=== PATIENT | female | born 1980 | race African-American/Black ===

== ENCOUNTER 2019-11-30 11:10 | Inpatient (IN) | payer OTHER ==
[2019-11-30 11:55] VITALS: BMI 31.6
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
[2019-11-30] MEDS ORDERED: MAG HYDROX/AL HYDROX/SIMETH 30 ML UNIT-DOSE CUP PO PRN (13:49)
[2019-11-30] MEDS ORDERED: BISMUTH SUBSALICYLATE 524 MG/30 ML UD PO PRN (13:49)
[2019-11-30] MEDS ORDERED: cloNIDine HCL 0.1 MG TABLET PO PRN (13:49)
[2019-11-30] MEDS ORDERED: ACETAMINOPHEN 325 MG TABLET (FP) PO PRN ×2 (13:49)
[2019-11-30] MEDS ORDERED: IBUPROFEN 400 MG TABLET (FP) PO PRN (13:49)
[2019-11-30] MEDS ORDERED: MAGNESIUM CITRATE 300 ML BOTTLE PO PRN (13:49)
[2019-11-30] MEDS ORDERED: MAGNESIUM HYDROX 2400MG/30ML ORAL SUSPENSION 30 ML CUP PO PRN (13:49)
[2019-11-30] MEDS ORDERED: MENTHOL/PHENOL 1 EACH UD MM PRN (13:49)
[2019-11-30] MEDS ORDERED: METHADONE HCL 10 MG TABLET (FOR DETOX USE ONLY) PO ONE (14:00)
[2019-11-30] MEDS: NICOTINE 14 MG/24 HOURS TOPICAL PATCH TD SCH (14:37)
[2019-11-30] MEDS: METHOCARBAMOL 500 MG TABLET PO PRN ×2 (15:10→22:22)
[2019-11-30 17:40] LABS: HEMATOCRIT 38.7 % (32.4-45.2); HEMOGLOBIN 12.4 GM/dL (10.7-15.3); MCH 28.2 pg (25.7-33.7); MCHC 32.1 g/dl (32.0-36.0); MEAN CELL VOLUME 87.9 fl (80-96); MEAN PLT VOLUME 9.6 fl (7.5-11.1); PLATELET COUNT 231 K/MM3 (134-434); RBC 4.41 M/mm3 (3.60-5.2); RDW 14.4 % (11.6-15.6); WHITE BLOOD COUNT 8.1 K/mm3 (4.0-10.0)
[2019-11-30 17:51] LABS: BILIRUBIN,TOTAL 0.3 mg/dL (0.2-1); BLOOD UREA NITROGEN 14.1 mg/dL (7-18); CALCIUM 9.1 mg/dL (8.5-10.1); POTASSIUM 3.8 mmol/L (3.5-5.1); TOT PROT 7.3 g/dl (6.4-8.2)
[2019-11-30] MEDS: hydrOXYzine PAMOATE 25 MG CAPSULE (FP) PO PRN (18:11)
[2019-11-30] MEDS: MELATONIN 5 MG TABLETS PO PRN (22:22)
[2019-11-30] MEDS: THIAMINE HCL 100 MG TABLET (FP) PO SCH (22:22)
[2019-12-01] MEDS ORDERED: METHADONE HCL 10 MG TABLET (FOR DETOX USE ONLY) ONE (09:49)
[2019-12-01] MEDS ORDERED: METHADONE HCL 5 MG TABLET (FOR DETOX USE ONLY) ONE (09:50)
[2019-12-01] MEDS ORDERED: METHADONE (DETOX) 20 MG, METHADONE (DETOX) 5 MG PO ONE (10:00)
[2019-12-01] MEDS: PRENATAL VITAMINS W/ FOLIC ACID TABLET (FP) PO SCH (10:05)
[2019-12-01] MEDS: hydrOXYzine PAMOATE 25 MG CAPSULE (FP) PO PRN ×2 (10:06→17:03)
[2019-12-01] MEDS: METHOCARBAMOL 500 MG TABLET PO PRN ×2 (10:06→17:03)
[2019-12-01] MEDS: NICOTINE 14 MG/24 HOURS TOPICAL PATCH TD SCH (10:08)
--- NOTE | 2019-12-01 10:37 | CONSULT ---
[facility] Psychiatric Consult - Data Date of interview: 12/01/19 Admission source: [facility] Identifying data: Revisit to [facility] and admission to [address] [place] [address] for this 39 y/o AA female self-referred for detoxification treatment. CYNTHIA issues : alcohol, nicotine, heroin. Patient is single, a mother of two (children are in legal custody of maternal grand mother), homeless, unemployed and deprived of financial assistance. Substance Abuse History: Discussed with the patient. Details in current [facility] report as follows : Smoking history: Current every day smoker. Have you smoked in the past 12 months: Yes. Aproximately how many cigarettes per day: 6. If you are a former smoker, when did you quit?: 2000. Hx Chewing Tobacco Use: No. Initiated information on smoking cessation: Yes. 'Breaking Loose' booklet given: 11/30/19. - Substances abused. Crack. Substance route: Smoking. Frequency: Daily. Amount used: $100. Age of first use: 36. Date of last use: 11/29/19. Heroin. Substance route: Inhalation. Frequency: Daily. Amount used: 6 BAGS. Age of first use: 34. Date of last use: 11/29/19. Alprazolam (Xanax). Substance route: Oral. Frequency: Daily. Amount used: 16 MG. Age of first use: 27. Date of last use: 11/29/19. Non-Rx Methadone. Substance route: Oral. Frequency: Daily. Amount used: 50MG. Age of first use : 34. Date of last use: 11/29/19. Alcohol. Substance route: Oral. Frequency: Daily. Amount used: 32 OZ BEER. Age of first use: 32. Date of last use: 11/29/19 Medical History: Medical profile is remarkable for chronic lumbar pain ( herniated discs), polyneuropathy and antecedent of two sections. Psychiatric History: Patient denies history of psychiatric hospitalizations. She saw a psychiatrist for the first time, age 31, at the [facility] ([facility]) to address issues of depression and anxiety. Patient is known to [facility]. At that facility, she was medicated with buspar + celexa + gabapentin. Ms Smith endorses : MDD, PTSD and Bipolar Disorder. She reports her current regimen as wellbutrin XL 150 mg/ day + gabapentin 800 mg po tid. She denies affiliation with a psychiatric OPD care provider (got her medications during a recent admission to the detox unit at [facility]). Questionable and unreliable historian. Patient denies history of suicide attempts. Physical/Sexual Abuse/Trauma History: Not discused. Patient declines. Additional Comment: Urine drug screen results: THC-Marijuana, ELIAN-Cocaine, FEN- Fentanyl, MOP-Opiates, MTD-Methadone, BZO-Benzodiazepines, MDMA-Ecstasy. Noted. Mental Status Exam - Mental Status Exam Alert and Oriented to: Time, Place, Person Cognitive Function: Good Patient Appearance: Unkempt, Disheveled (somnolent during the psychiatric interview) Mood: Nervous, Withdrawn Affect: Mood Congruent, Constricted Patient Behavior: Sedated (mildly sedated during interview), Fatigued Speech Pattern: Delayed, Slurred Voice Loudness: Normal Thought Process: Goal Oriented Thought Disorder: Not Present Hallucinations: Denies Suicidal Ideation: Denies Homicidal Ideation: Denies Insight/Judgement: Poor Sleep: Well Appetite: Good Gait/Station: Other (slow) Psychiatric Findings - Problem List ([place] 1, 2,3) (1) Alcohol dependence Current Visit: Yes Status: Chronic (2) Opioid dependence Current Visit: Yes Status: Chronic (3) Cocaine use disorder Current Visit: Yes Status: Chronic (4) Benzodiazepine dependence Current Visit: Yes Status: Chronic (5) Nicotine dependence Current Visit: Yes Status: Chronic (6) Drug-induced mood disorder Current Visit: Yes Status: Chronic (7) History of depression Current Visit: Yes Status: Chronic - Initial Treatment Plan Initial Treatment Plan: Psychoeducation. Sleep hygiene. Detoxification in process. Resumed : wellbutrin XL 150 mg po daily. Patient is made aware of potential for seizures. Ms Smith is in agreement with this plan of care. Gave consent (verbal) to MD. Posada.
[2019-12-01] MEDS ORDERED: GABAPENTIN 300 MG CAPSULE PO SCH (10:48)
--- NOTE | 2019-12-01 12:42 | PN ---
[facility] CIWA - CIWA Score Nausea/Vomitin-Mild Nausea/No Vomiting Muscle Tremors: 3 Anxiety: 3 Agitation: 2 Paroxysmal Sweats: 2 Orientation: 0-Oriented Tacttile Disturbances: 0-None Auditory Disturbances: 0-None Visual Disturbances: 0-None Headache: 1-Very Mild CIWA-Ar Total Score: 12 S COWS - Scale Resting Pulse: 0= [place] 80 or Below Sweatin= Chills/Flushing Restless Observation: 0= Sits Still Pupil Size: 1= Pupils >than Normal Bone or Joint Aches: 1= Mild Discomfort Runny Nose/ Eye Tearin= None GI Upset > 30mins: 1= Stomach Cramp Tremor Observation of Outstretched Hands: 2= Slight Tremor Visible Yawning Observation: 0= None Anxiety or Irritability: 2=Irritable/Anxious Goose Flesh Skin: 0=Smooth Skin COWS Score: 8 [facility] Progress Note (SOAP) Subjective: 39 years old female admitted on 11/30/19 for alcohol benzo opiate withdrawal sx management treating with clonidine prn and methadone detox regimen due to low bp discontinue clonidine begin klonopine 0.5 mg po prn reports taking neurontin 800 mg po tid every day last dose was the day of [facility] admission medical underwriter called preferred pharmacy [phone] 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 neurontine 800mg po tid x 7 days on 07/04/19 "no curing pickling packer" reports has neurontin in property encourage to curing pickling packer bottle from property for continuity of care requests to call [phone] for neurontine 800 mg po tid pharmacist states that patient has neurontine 300mg po tid x 5 days from to 11/27/19 patient curing pickling packer on 11/22/19 due to none continuity of neurontine po daily begin neurontine 100 mg po bid prn patient demands prescription of neurontine 800mg po tid health teaching on risks of respiratory distress of neutrontine Objective: 12/01/19 12:46 Vital Signs Temperature 98.7 F 12/01/19 09:34 Pulse Rate 56 L 12/01/19 09:34 Respiratory Rate 18 12/01/19 09:34 Blood Pressure 106/72 12/01/19 09:34 O2 Sat by Pulse Oximetry (%) Laboratory Last Values WBC 8.1 K/mm3 (4.0-10.0) 11/30/19 14:00 RBC 4.41 M/mm3 (3.60-5.2) 11/30/19 14:00 Hgb 12.4 GM/dL (10.7-15.3) 11/30/19 14:00 Hct 38.7 % (32.4-45.2) 11/30/19 14:00 MCV 87.9 fl (80-96) 11/30/19 14:00 MCH 28.2 pg (25.7-33.7) 11/30/19 14:00 MCHC 32.1 g/dl (32.0-36.0) 11/30/19 14:00 RDW 14.4 % (11.6-15.6) 11/30/19 14:00 Plt Count 231 K/MM3 (134-434) D 11/30/19 14:00 MPV 9.6 fl (7.5-11.1) 11/30/19 14:00 Sodium 143 mmol/L (136-145) 11/30/19 14:00 Potassium 3.8 mmol/L (3.5-5.1) 11/30/19 14:00 Chloride 109 mmol/L (98-107) H 11/30/19 14:00 Carbon Dioxide 29 mmol/L (21-32) 11/30/19 14:00 Anion Gap 5 MMOL/L (8-16) L 11/30/19 14:00 BUN 14.1 mg/dL (7-18) 11/30/19 14:00 Creatinine 1.0 mg/dL (0.55-1.3) 11/30/19 14:00 Est GFR (CKD-EPI)AfAm 82.19 11/30/19 14:00 Est GFR (CKD-EPI)NonAf 70.91 11/30/19 14:00 Random Glucose 98 mg/dL (74-106) 11/30/19 14:00 Calcium 9.1 mg/dL (8.5-10.1) 11/30/19 14:00 Total Bilirubin 0.3 mg/dL (0.2-1) 11/30/19 14:00 AST 15 U/L (15-37) 11/30/19 14:00 ALT 23 U/L (13-61) 11/30/19 14:00 Alkaline Phosphatase 67 U/L (45-117) 11/30/19 14:00 Total Protein 7.3 g/dl (6.4-8.2) 11/30/19 14:00 Albumin 4.0 g/dl (3.4-5.0) 11/30/19 14:00 POC Urine HCG, Qual Negative 11/30/19 11:56 RPR Titer Nonreactive (NONREACTIVE) 11/30/19 14:00 HIV 1&2 Antibody Screen Negative 11/30/19 14:00 HIV P24 Antigen Negative 11/30/19 14:00 lab noted Assessment: 12/01/19 12:46 alcohol benzo opiate withdrawal Plan: clonopine prn and methadone regiments
[2019-12-01] MEDS: clonazePAM 0.5 MG TABLET PO PRN ×2 (13:54→20:27)
[2019-12-01] MEDS: GABAPENTIN 100 MG CAPSULE PO PRN ×2 (13:54→20:27)
[2019-12-01] MEDS: MELATONIN 5 MG TABLETS PO PRN (22:02)
[2019-12-01] MEDS: THIAMINE HCL 100 MG TABLET (FP) PO SCH (22:02)
[2019-12-02] MEDS: clonazePAM 0.5 MG TABLET PO PRN ×3 (06:14→19:49)
[2019-12-02] MEDS: METHOCARBAMOL 500 MG TABLET PO PRN ×3 (06:14→19:49)
[2019-12-02] MEDS: GABAPENTIN 100 MG CAPSULE PO PRN ×3 (06:14→19:49)
--- NOTE | 2019-12-02 09:40 | PN ---
[facility] CIWA - CIWA Score Nausea/Vomitin-No Nausea/No Vomiting Muscle Tremors: 2 Anxiety: 3 Agitation: 0-Normal Activity Paroxysmal Sweats: 2 Orientation: 0-Oriented Tacttile Disturbances: 3-Moderate Itch/Numb/Burn Auditory Disturbances: 0-None Visual Disturbances: 0-None Headache: 1-Very Mild CIWA-Ar Total Score: 11 [facility] COWS - Scale Resting Pulse: 0= [place] 80 or Below Sweatin= Chills/Flushing Restless Observation: 1= Difficult to Sit Still Pupil Size: 0= Normal to Room Light Bone or Joint Aches: 1= Mild Discomfort Runny Nose/ Eye Tearin= Nasal Congestion GI Upset > 30mins: 1= Stomach Cramp Tremor Observation of Outstretched Hands: 1= Tremor [place], Not Seen Yawning Observation: 1= 1-2x During Session Anxiety or Irritability: 2=Irritable/Anxious Goose Flesh Skin: 0=Smooth Skin COWS Score: 9 S Progress Note (SOAP) Subjective: c/o of chronic back pain (as per pt hx of herniated discs), pruritus, anxiety, interrupted sleep. Patient reports taking 800 mg tid for anxiety and pain, as per previous provider note last rx for 800 mg was June 2019, last rx for neurontin 300 mg tid was nov 2019. Objective: 12/02/19 09:40 Vital Signs Temperature 97.9 F 12/02/19 09:23 Pulse Rate 80 12/02/19 09:23 Respiratory Rate 18 12/02/19 09:23 Blood Pressure 98/61 12/02/19 09:23 O2 Sat by Pulse Oximetry (%) Laboratory Last Values WBC 8.1 K/mm3 (4.0-10.0) 11/30/19 14:00 RBC 4.41 M/mm3 (3.60-5.2) 11/30/19 14:00 Hgb 12.4 GM/dL (10.7-15.3) 11/30/19 14:00 Hct 38.7 % (32.4-45.2) 11/30/19 14:00 MCV 87.9 fl (80-96) 11/30/19 14:00 MCH 28.2 pg (25.7-33.7) 11/30/19 14:00 MCHC 32.1 g/dl (32.0-36.0) 11/30/19 14:00 RDW 14.4 % (11.6-15.6) 11/30/19 14:00 Plt Count 231 K/MM3 (134-434) D 11/30/19 14:00 MPV 9.6 fl (7.5-11.1) 11/30/19 14:00 Sodium 143 mmol/L (136-145) 11/30/19 14:00 Potassium 3.8 mmol/L (3.5-5.1) 11/30/19 14:00 Chloride 109 mmol/L (98-107) H 11/30/19 14:00 Carbon Dioxide 29 mmol/L (21-32) 11/30/19 14:00 Anion Gap 5 MMOL/L (8-16) L 11/30/19 14:00 BUN 14.1 mg/dL (7-18) 11/30/19 14:00 Creatinine 1.0 mg/dL (0.55-1.3) 11/30/19 14:00 Est GFR (CKD-EPI)AfAm 82.19 11/30/19 14:00 Est GFR (CKD-EPI)NonAf 70.91 11/30/19 14:00 Random Glucose 98 mg/dL (74-106) 11/30/19 14:00 Calcium 9.1 mg/dL (8.5-10.1) 11/30/19 14:00 Total Bilirubin 0.3 mg/dL (0.2-1) 11/30/19 14:00 AST 15 U/L (15-37) 11/30/19 14:00 ALT 23 U/L (13-61) 11/30/19 14:00 Alkaline Phosphatase 67 U/L (45-117) 11/30/19 14:00 Total Protein 7.3 g/dl (6.4-8.2) 11/30/19 14:00 Albumin 4.0 g/dl (3.4-5.0) 11/30/19 14:00 POC Urine HCG, Qual Negative 11/30/19 11:56 RPR Titer Nonreactive (NONREACTIVE) 11/30/19 14:00 HIV 1&2 Antibody Screen Negative 11/30/19 14:00 HIV P24 Antigen Negative 11/30/19 14:00 Assessment: 12/02/19 09:46 Patient Aox3 gerald cute distress EENT WNL Full ROM no gait distubance wtihdrawal sx Plan: increase neeta to 300 mg tid prn for back pain increase fluids continue detox
[2019-12-02] MEDS ORDERED: METHADONE HCL 10 MG TABLET (FOR DETOX USE ONLY) PO ONE (10:00)
[2019-12-02] MEDS: NICOTINE 14 MG/24 HOURS TOPICAL PATCH TD SCH (10:17)
[2019-12-02] MEDS: PRENATAL VITAMINS W/ FOLIC ACID TABLET (FP) PO SCH (10:17)
[2019-12-02] MEDS ORDERED: BACITRACIN 0.9 GM PACKET TP ONE (10:18)
[2019-12-02] MEDS: HYDROCORTISONE 1% TOPICAL OINT 30 GM TUBE TP PRN (13:57)
[2019-12-02] MEDS: hydrOXYzine PAMOATE 25 MG CAPSULE (FP) PO PRN (22:10)
[2019-12-02] MEDS: THIAMINE HCL 100 MG TABLET (FP) PO SCH (22:10)
[2019-12-02] MEDS: MELATONIN 5 MG TABLETS PO PRN (22:10)
[2019-12-03] MEDS: clonazePAM 0.5 MG TABLET PO PRN ×4 (05:56→23:35)
[2019-12-03] MEDS: GABAPENTIN 100 MG CAPSULE PO PRN ×4 (06:00→23:33)
[2019-12-03] MEDS: METHOCARBAMOL 500 MG TABLET PO PRN ×4 (06:00→23:35)
[2019-12-03] MEDS ORDERED: METHADONE HCL 10 MG TABLET (FOR DETOX USE ONLY) ONE (09:45)
[2019-12-03] MEDS ORDERED: METHADONE HCL 5 MG TABLET (FOR DETOX USE ONLY) ONE (09:45)
[2019-12-03] MEDS ORDERED: METHADONE (DETOX) 10 MG, METHADONE (DETOX) 5 MG PO ONE (10:00)
[2019-12-03] MEDS: PRENATAL VITAMINS W/ FOLIC ACID TABLET (FP) PO SCH (10:30)
[2019-12-03] MEDS: NICOTINE 14 MG/24 HOURS TOPICAL PATCH TD SCH (10:31)
--- NOTE | 2019-12-03 12:36 | PN ---
S CIWA - CIWA Score Nausea/Vomitin Muscle Tremors: 2 Anxiety: 3 Agitation: 0-Normal Activity Paroxysmal Sweats: 2 Orientation: 0-Oriented Tacttile Disturbances: 0-None Auditory Disturbances: 0-None Visual Disturbances: 1-Very Mild Sensitivity Headache: 1-Very Mild CIWA-Ar Total Score: 11 S COWS - Scale Resting Pulse: 0= [place] 80 or Below Sweatin= Chills/Flushing Restless Observation: 1= Difficult to Sit Still Pupil Size: 0= Normal to Room Light Bone or Joint Aches: 1= Mild Discomfort Runny Nose/ Eye Tearin= Nasal Congestion GI Upset > 30mins: 0= None Tremor Observation of Outstretched Hands: 1= Tremor [place], Not Seen Yawning Observation: 1= 1-2x During Session Anxiety or Irritability: 2=Irritable/Anxious Goose Flesh Skin: 0=Smooth Skin COWS Score: 8 [facility] Progress Note (SOAP) Subjective: Patient c/o of interrupted sleep, sweats, body aches Objective: 12/03/19 12:36 Vital Signs Temperature 96.2 F L 12/03/19 09:07 Pulse Rate 62 12/03/19 09:07 Respiratory Rate 18 12/03/19 09:07 Blood Pressure 104/67 12/03/19 09:07 O2 Sat by Pulse Oximetry (%) Laboratory Last Values WBC 8.1 K/mm3 (4.0-10.0) 11/30/19 14:00 RBC 4.41 M/mm3 (3.60-5.2) 11/30/19 14:00 Hgb 12.4 GM/dL (10.7-15.3) 11/30/19 14:00 Hct 38.7 % (32.4-45.2) 11/30/19 14:00 MCV 87.9 fl (80-96) 11/30/19 14:00 MCH 28.2 pg (25.7-33.7) 11/30/19 14:00 MCHC 32.1 g/dl (32.0-36.0) 11/30/19 14:00 RDW 14.4 % (11.6-15.6) 11/30/19 14:00 Plt Count 231 K/MM3 (134-434) D 11/30/19 14:00 MPV 9.6 fl (7.5-11.1) 11/30/19 14:00 Sodium 143 mmol/L (136-145) 11/30/19 14:00 Potassium 3.8 mmol/L (3.5-5.1) 11/30/19 14:00 Chloride 109 mmol/L (98-107) H 11/30/19 14:00 Carbon Dioxide 29 mmol/L (21-32) 11/30/19 14:00 Anion Gap 5 MMOL/L (8-16) L 11/30/19 14:00 BUN 14.1 mg/dL (7-18) 11/30/19 14:00 Creatinine 1.0 mg/dL (0.55-1.3) 11/30/19 14:00 Est GFR (CKD-EPI)AfAm 82.19 11/30/19 14:00 Est GFR (CKD-EPI)NonAf 70.91 11/30/19 14:00 Random Glucose 98 mg/dL (74-106) 11/30/19 14:00 Calcium 9.1 mg/dL (8.5-10.1) 11/30/19 14:00 Total Bilirubin 0.3 mg/dL (0.2-1) 11/30/19 14:00 AST 15 U/L (15-37) 11/30/19 14:00 ALT 23 U/L (13-61) 11/30/19 14:00 Alkaline Phosphatase 67 U/L (45-117) 11/30/19 14:00 Total Protein 7.3 g/dl (6.4-8.2) 11/30/19 14:00 Albumin 4.0 g/dl (3.4-5.0) 11/30/19 14:00 POC Urine HCG, Qual Negative 11/30/19 11:56 RPR Titer Nonreactive (NONREACTIVE) 11/30/19 14:00 HIV 1&2 Antibody Screen Negative 11/30/19 14:00 HIV P24 Antigen Negative 11/30/19 14:00 Assessment: 12/03/19 15:18 patient Aox3 no acute distress EENT WNL Full ROM ambulating in the unit withdrawal sx Plan: increase fluids continue detox continue to monitor
[2019-12-03] MEDS: HYDROCORTISONE 1% TOPICAL OINT 30 GM TUBE TP PRN (13:13)
[2019-12-03] MEDS: THIAMINE HCL 100 MG TABLET (FP) PO SCH (22:11)
[2019-12-03] MEDS: hydrOXYzine PAMOATE 25 MG CAPSULE (FP) PO PRN (22:12)
[2019-12-03] MEDS: MELATONIN 5 MG TABLETS PO PRN (22:12)
[2019-12-04] MEDS: clonazePAM 0.5 MG TABLET PO PRN ×3 (05:53→19:53)
[2019-12-04] MEDS: GABAPENTIN 100 MG CAPSULE PO PRN ×3 (05:54→19:56)
[2019-12-04] MEDS: METHOCARBAMOL 500 MG TABLET PO PRN ×3 (05:54→19:56)
[2019-12-04] MEDS ORDERED: METHADONE HCL 10 MG TABLET (FOR DETOX USE ONLY) PO ONE (10:00)
[2019-12-04] MEDS: PRENATAL VITAMINS W/ FOLIC ACID TABLET (FP) PO SCH (10:05)
[2019-12-04] MEDS: hydrOXYzine PAMOATE 25 MG CAPSULE (FP) PO PRN ×2 (10:05→22:46)
[2019-12-04] MEDS: NICOTINE 14 MG/24 HOURS TOPICAL PATCH TD SCH (10:05)
[2019-12-04] MEDS ORDERED: ONDANSETRON *ODT* 4 MG TABLET SL ONE (11:26)
--- NOTE | 2019-12-04 13:00 | PN ---
[facility] CIWA - CIWA Score Nausea/Vomitin-Mild Nausea/No Vomiting Muscle Tremors: None Anxiety: 1-Mildly Anxious Agitation: 0-Normal Activity Paroxysmal Sweats: 2 Orientation: 0-Oriented Tacttile Disturbances: 0-None Auditory Disturbances: 0-None Visual Disturbances: 0-None Headache: 1-Very Mild CIWA-Ar Total Score: 5 S COWS - Scale Resting Pulse: 0= [place] 80 or Below Sweatin= No chills or Flushing Restless Observation: 0= Sits Still Pupil Size: 0= Normal to Room Light Bone or Joint Aches: 2= Severe Diffuse Aches Runny Nose/ Eye Tearin= None GI Upset > 30mins: 0= None Tremor Observation of Outstretched Hands: 0= None Yawning Observation: 0= None Anxiety or Irritability: 2=Irritable/Anxious Goose Flesh Skin: 0=Smooth Skin COWS Score: 4 [facility] Progress Note (SOAP) Subjective: c/o mild withdrawal symptoms. Objective: 12/04/19 12:57 Vital Signs 12/04/19 12/04/19 06:28 09:07 Temperature 97.0 F L 96.4 F L Pulse Rate 74 75 Respiratory 18 18 Rate Blood Pressure 118/71 117/75 Laboratory Last Values WBC 8.1 K/mm3 (4.0-10.0) 11/30/19 14:00 RBC 4.41 M/mm3 (3.60-5.2) 11/30/19 14:00 Hgb 12.4 GM/dL (10.7-15.3) 11/30/19 14:00 Hct 38.7 % (32.4-45.2) 11/30/19 14:00 MCV 87.9 fl (80-96) 11/30/19 14:00 MCH 28.2 pg (25.7-33.7) 11/30/19 14:00 MCHC 32.1 g/dl (32.0-36.0) 11/30/19 14:00 RDW 14.4 % (11.6-15.6) 11/30/19 14:00 Plt Count 231 K/MM3 (134-434) D 11/30/19 14:00 MPV 9.6 fl (7.5-11.1) 11/30/19 14:00 Sodium 143 mmol/L (136-145) 11/30/19 14:00 Potassium 3.8 mmol/L (3.5-5.1) 11/30/19 14:00 Chloride 109 mmol/L (98-107) H 11/30/19 14:00 Carbon Dioxide 29 mmol/L (21-32) 11/30/19 14:00 Anion Gap 5 MMOL/L (8-16) L 11/30/19 14:00 BUN 14.1 mg/dL (7-18) 11/30/19 14:00 Creatinine 1.0 mg/dL (0.55-1.3) 11/30/19 14:00 Est GFR (CKD-EPI)AfAm 82.19 11/30/19 14:00 Est GFR (CKD-EPI)NonAf 70.91 11/30/19 14:00 Random Glucose 98 mg/dL (74-106) 11/30/19 14:00 Calcium 9.1 mg/dL (8.5-10.1) 11/30/19 14:00 Total Bilirubin 0.3 mg/dL (0.2-1) 11/30/19 14:00 AST 15 U/L (15-37) 11/30/19 14:00 ALT 23 U/L (13-61) 11/30/19 14:00 Alkaline Phosphatase 67 U/L (45-117) 11/30/19 14:00 Total Protein 7.3 g/dl (6.4-8.2) 11/30/19 14:00 Albumin 4.0 g/dl (3.4-5.0) 11/30/19 14:00 POC Urine HCG, Qual Negative 11/30/19 11:56 RPR Titer Nonreactive (NONREACTIVE) 11/30/19 14:00 HIV 1&2 Antibody Screen Negative 11/30/19 14:00 HIV P24 Antigen Negative 11/30/19 14:00 Labs noted. Assessment: 12/04/19 12:58 AOX3, in no acute respiratory distress. Full ROM, ambulating in the unit. C/O mild nausea, no vomiting. Mild Withdrawal symptoms. For d/c tomorrow. 12/04/19 12:59 Plan: continue detox. zofran 4mg SL once. D/C in AM.
[2019-12-04] MEDS: THIAMINE HCL 100 MG TABLET (FP) PO SCH (22:46)
[2019-12-04] MEDS: MELATONIN 5 MG TABLETS PO PRN (22:46)
[2019-12-05] MEDS: METHOCARBAMOL 500 MG TABLET PO PRN (04:08)
[2019-12-05] MEDS: GABAPENTIN 100 MG CAPSULE PO PRN (04:08)
[2019-12-05] MEDS ORDERED: METHADONE HCL 5 MG TABLET (FOR DETOX USE ONLY) PO ONE (06:00)
[2019-12-05 09:19] VITALS: BP 112/69; PULSE 78; TEMP 97.9
--- NOTE | 2019-12-05 09:48 | PN ---
[facility] Progress Note Note: Patient is discharged today. Script for 30 days supply of Wellbutrin XL 150 mg/ day is electronically transmitted to [facility] at [address] [place] [id number]
[2019-12-05] MEDS: PRENATAL VITAMINS W/ FOLIC ACID TABLET (FP) PO SCH (09:56)
[2019-12-05] MEDS: NICOTINE 14 MG/24 HOURS TOPICAL PATCH TD SCH (09:58)
--- NOTE | 2019-12-05 13:23 | DS ---
[facility] Detox Discharge Summary Admission Date: 11/30/19 Discharge Date: 12/05/19 - History Present History: Alcohol Dependence, Opioid Dependence, Sedative Dependence Additional Comments: 39 years old female admitted on 11/30/19 for alcohol benzo opiate withdrawal sx management treated wtih klonopin prn and methadone detox regiments patient has completed the methadone and klonopin regiments and tolerated well alert oriented x 3 seen by psychiatrist resume wellbutrim respiratory clear lungs bilaterally on auscultation abdomen soft round obese no rebound tenderness extremities full range of motion Pertinent Past History: encourage the patient to follow up with her primary care provider or community health service for medication dosage adjustment - Physical Exam Results Vital Signs: Vital Signs Temperature 97.9 F 12/05/19 09:19 Pulse Rate 78 12/05/19 09:19 Respiratory Rate 18 12/05/19 09:19 Blood Pressure 112/69 12/05/19 09:19 O2 Sat by Pulse Oximetry (%) Pertinent Admission Physical Exam Findings: alcohol benzo opiate withdrawal Laboratory Last Values WBC 8.1 K/mm3 (4.0-10.0) 11/30/19 14:00 RBC 4.41 M/mm3 (3.60-5.2) 11/30/19 14:00 Hgb 12.4 GM/dL (10.7-15.3) 11/30/19 14:00 Hct 38.7 % (32.4-45.2) 11/30/19 14:00 MCV 87.9 fl (80-96) 11/30/19 14:00 MCH 28.2 pg (25.7-33.7) 11/30/19 14:00 MCHC 32.1 g/dl (32.0-36.0) 11/30/19 14:00 RDW 14.4 % (11.6-15.6) 11/30/19 14:00 Plt Count 231 K/MM3 (134-434) D 11/30/19 14:00 MPV 9.6 fl (7.5-11.1) 11/30/19 14:00 Sodium 143 mmol/L (136-145) 11/30/19 14:00 Potassium 3.8 mmol/L (3.5-5.1) 11/30/19 14:00 Chloride 109 mmol/L (98-107) H 11/30/19 14:00 Carbon Dioxide 29 mmol/L (21-32) 11/30/19 14:00 Anion Gap 5 MMOL/L (8-16) L 11/30/19 14:00 BUN 14.1 mg/dL (7-18) 11/30/19 14:00 Creatinine 1.0 mg/dL (0.55-1.3) 11/30/19 14:00 Est GFR (CKD-EPI)AfAm 82.19 11/30/19 14:00 Est GFR (CKD-EPI)NonAf 70.91 11/30/19 14:00 Random Glucose 98 mg/dL (74-106) 11/30/19 14:00 Calcium 9.1 mg/dL (8.5-10.1) 11/30/19 14:00 Total Bilirubin 0.3 mg/dL (0.2-1) 11/30/19 14:00 AST 15 U/L (15-37) 11/30/19 14:00 ALT 23 U/L (13-61) 11/30/19 14:00 Alkaline Phosphatase 67 U/L (45-117) 11/30/19 14:00 Total Protein 7.3 g/dl (6.4-8.2) 11/30/19 14:00 Albumin 4.0 g/dl (3.4-5.0) 11/30/19 14:00 POC Urine HCG, Qual Negative 11/30/19 11:56 RPR Titer Nonreactive (NONREACTIVE) 11/30/19 14:00 HIV 1&2 Antibody Screen Negative 11/30/19 14:00 HIV P24 Antigen Negative 11/30/19 14:00 lab noted - Treatment Hospital Course: Detox Protocol Followed, Detoxed Safely, Responded well, Discharged Condition Good, Rehab Referral Accepted Patient has Accepted [facility] - Medication Discharge Medications: Ambulatory Orders Bupropion HCl [Wellbutrin Xl -] 150 mg PO DAILY 11/30/19 Gabapentin 800 mg PO TID 11/30/19 Quetiapine Fumarate [Seroquel -] 100 mg PO HS 11/30/19 clonazePAM [Klonopin -] 0.5 mg PO BID 11/30/19 Naloxone HCl [Narcan] 4 mg NS ASDIR PRN #1 spray 12/01/19 Bupropion HCl [Wellbutrin Xl -] 150 mg PO DAILY #30 tab.sr.24h 12/05/19 - Diagnosis (1) Alcohol dependence Status: Acute (2) Benzodiazepine dependence Status: Acute (3) Nicotine dependence Status: Acute Qualifiers: Nicotine product type: cigarettes Substance use status: in withdrawal Qualified Code(s): F17.213 - Nicotine dependence, cigarettes, with withdrawal (4) Opioid dependence Status: Acute - AMA Did Patient Leave Against Medical Advice: No CIWA Score - CIWA Score Nausea/Vomitin-No Nausea/No Vomiting Muscle Tremors: None Anxiety: 0-No Anxiety, at Ease Agitation: 0-Normal Activity Paroxysmal Sweats: 1-Minimal Palms Moist Orientation: 0-Oriented Tacttile Disturbances: 0-None Auditory Disturbances: 0-None Visual Disturbances: 0-None Headache: 1-Very Mild CIWA-Ar Total Score: 2 COWS (PN) - Opiate Withdrawal Resting Pulse: 0= [place] 80 or Below Sweatin= Chills/Flushing Restless Observation: 0= Sits Still Pupil Size: 0= Normal to Room Light Bone or Joint Aches: 0= None Runny Nose/ Eye Tearin= None GI Upset > 30mins: 0= None Tremor Observation of Outstretched Hands: 1= Tremor Angie, Not Seen Yawning Observation: 0= None Anxiety or Irritability: 1=Feels Anxious/Irritable Goose Flesh Skin: 0=Smooth Skin COWS Score: 3
== END 2019-12-05 10:15 | disposition home or self-care (01) | DRG 773 ==
LOC: YASAS 11:10 → Y3N 12:47
PROVIDERS: ADMIT Allergy & Immunology; ATTEND Allergy & Immunology
PROC: HZ2ZZZZ Detoxification Services for Substance Abuse Treatment (ICD-10-PCS; principal; 2019-11-30)
DX: F11.23 Opioid dependence with withdrawal (principal); F10.230 Alcohol dependence with withdrawal, uncomplicated; F13.230 Sedative, hypnotic or anxiolytic dependence with withdrawal, uncomplicated; F14.20 Cocaine dependence, uncomplicated; F17.213 Nicotine dependence, cigarettes, with withdrawal; F19.24 Other psychoactive substance dependence with psychoactive substance-induced mood disorder; F41.9 Anxiety disorder, unspecified; Z59.0 Homelessness
CPT/HCPCS: 36415; 80053; 81025; 85027; 86593; 87389; J0735; Q0162